=== PATIENT | male | born 1970 | race Caucasian/White ===

== ENCOUNTER → 2016-11-29 | Outpatient (REF) | payer OTHER ==
[2016-11-29 16:14] LABS: ALBUMIN 4.2 GM/DL (3.2-5.2); ALKALINE PHOSPHATASE 97 U/L (45-117); ALT/SGPT 29 U/L (12-78); ANION GAP 10 MEQ/L (8-16); AST/SGOT 18 U/L (15-37); BILIRUBIN,TOTAL 0.2 MG/DL (0.2-1.0); BLOOD UREA NITROGEN 18 MG/DL (7-18); CALCIUM LEVEL 8.8 MG/DL (8.5-10.1); CARBON DIOXIDE LEVEL 25 MEQ/L (21-32); CHLORIDE LEVEL 106 MEQ/L (98-107); CHOLESTEROL LEVEL 263 MG/DL (<200); GLOMERULAR FILTRATION RATE > 60.0 (>60); GLUCOSE, FASTING 101 MG/DL (70-105); POTASSIUM SERUM 4.2 MEQ/L (3.5-5.1); SODIUM LEVEL 141 MEQ/L (136-145); TOTAL PROTEIN 7.7 GM/DL (6.4-8.2); TRIGLYCERIDES LEVEL 256 MG/DL (<150)
== END ==
LOC: M SFHCPLAZ 10:53
PROVIDERS: ATTEND Internal Medicine Infectious Disease
DX: Z11.3 Encounter for screening for infections with a predominantly sexual mode of transmission (principal); B20 Human immunodeficiency virus [HIV] disease; E78.00 Pure hypercholesterolemia, unspecified

== ENCOUNTER → 2017-09-19 | Outpatient (REF) | payer OTHER ==
[2017-09-19 16:35] LABS: ANION GAP 7 MEQ/L (8-16); AST/SGOT 11 U/L (7-37); BLOOD UREA NITROGEN 20 MG/DL (7-18); CALCIUM LEVEL 9.1 MG/DL (8.5-10.1); CARBON DIOXIDE LEVEL 29 MEQ/L (21-32); CHLORIDE LEVEL 105 MEQ/L (98-107); CREATININE FOR GFR 0.83 MG/DL (0.70-1.30); GLOMERULAR FILTRATION RATE > 60.0 (>60); GLUCOSE, FASTING 86 MG/DL (70-105); POTASSIUM SERUM 4.4 MEQ/L (3.5-5.1); SODIUM LEVEL 141 MEQ/L (136-145)
[2017-09-19 16:36] LABS: ALBUMIN 4.1 GM/DL (3.2-5.2); ALBUMIN/GLOBULIN RATIO 1.37 (1.00-1.93); ALKALINE PHOSPHATASE 79 U/L (45-117); ALT/SGPT 23 U/L (12-78); BILIRUBIN,TOTAL 0.2 MG/DL (0.2-1.0); CHOLESTEROL LEVEL 282 MG/DL (<200); TOTAL PROTEIN 7.1 GM/DL (6.4-8.2); TRIGLYCERIDES LEVEL 219 MG/DL (<150)
[2017-09-25 00:06] LABS: Eosinophils 1 % (Not Estab.); HCT 45.3 % (37.5-51.0); HGB 14.9 g/dL (12.6-17.7); Monocytes 11 % (Not Estab.); Neutrophils 51 % (Not Estab.); WBC 5.2 x10E3/uL (3.4-10.8)
== END ==
LOC: M SFHCPLAZ 10:50
PROVIDERS: ATTEND Internal Medicine Infectious Disease
DX: B20 Human immunodeficiency virus [HIV] disease (principal); E78.00 Pure hypercholesterolemia, unspecified

== ENCOUNTER → 2018-03-25 | Outpatient (REF) | payer OTHER | LOC: M SFHCPLAZ 10:47 | DX: B20 Human immunodeficiency virus [HIV] disease (principal); E78.00 Pure hypercholesterolemia, unspecified; Z11.3 Encounter for screening for infections with a predominantly sexual mode of transmission ==

== ENCOUNTER → 2018-09-15 | Outpatient (REF) | payer OTHER ==
[2018-09-15 14:00] LABS: ALBUMIN 3.7 GM/DL (3.2-5.2); ALBUMIN/GLOBULIN RATIO 0.97 (1.00-1.93); ALKALINE PHOSPHATASE 84 U/L (45-117); ALT/SGPT 20 U/L (12-78); ANION GAP 6 MEQ/L (8-16); AST/SGOT 12 U/L (7-37); BILIRUBIN,TOTAL 0.3 MG/DL (0.2-1.0); BLOOD UREA NITROGEN 17 MG/DL (7-18); CALCIUM LEVEL 8.7 MG/DL (8.5-10.1); CARBON DIOXIDE LEVEL 27 MEQ/L (21-32); CHLORIDE LEVEL 108 MEQ/L (98-107); CHOLESTEROL LEVEL 238 MG/DL (<200); CHOLESTEROL RISK RATIO 5.534 (<5); CREATININE FOR GFR 0.98 MG/DL (0.70-1.30); GLOMERULAR FILTRATION RATE > 60.0 (>60); GLUCOSE, FASTING 88 MG/DL (70-100); HDL CHOLESTEROL 43 MG/DL (>40); LDL CHOLESTEROL 170 MG/DL (<100); NON-HDL-C 195 MG/DL; POTASSIUM SERUM 4.8 MEQ/L (3.5-5.1); SODIUM LEVEL 141 MEQ/L (136-145); TOTAL PROTEIN 7.5 GM/DL (6.4-8.2); TRIGLYCERIDES LEVEL 123 MG/DL (<150)
[2018-09-15 14:17] LABS: APPEARANCE, URINE CLEAR (CLEAR); BACTERIA, URINE AUTO NEGATIVE (NEGATIVE); BILIRUBIN, URINE AUTO NEGATIVE (NEGATIVE); BLOOD, URINE BLOOD NEGATIVE (NEGATIVE); COLOR, URINE YELLOW (YELLOW); GLUCOSE, URINE (UA) AUTO NEGATIVE (NEGATIVE); KETONE, URINE AUTO NEGATIVE (NEGATIVE); LEUKOCYTE ESTERASE, URINE AUTO NEGATIVE (NEGATIVE); NITRITE, URINE AUTO NEGATIVE (NEGATIVE); PROTEIN, URINE AUTO NEGATIVE (NEGATIVE); RBC, URINE AUTO 1 /HPF (0-3); SPECIFIC GRAVITY URINE AUTO 1.019 (1.002-1.035); SQUAMOUS EPITHELIAL CELL UR AU 0 /HPF (0-6); UROBILINOGEN, URINE AUTO 0.2 mg/dL (0.0-2.0); WBC, URINE AUTO 0 /HPF (0-3)
[2018-09-15 15:25] LABS: CHLAMYDIA DNA AMPLIFICATION NEGATIVE (NEGATIVE); GC DNA AMPLIFICATION NEGATIVE (NEGATIVE)
[2018-09-18 00:07] LABS: % CD8 Pos Lymph 29.2 % (12.0-35.5); %CD4 Pos Lymphs 47.6 % (30.8-58.5); ABS Lymphs 2.2 x10E3/uL (0.7-3.1); ABS Monocytes 0.6 x10E3/uL (0.1-0.9); Abs CD4 Helper 1047 /uL (359-1519); Abs CD8 Suppres 642 /uL (109-897); CD4/CD8 Ratio 1.63 (0.92-3.72); Eosinophils 1 % (Not Estab.); HCT 44.8 % (37.5-51.0); HGB 15.4 g/dL (13.0-17.7); HIV-1 RNA PCR QUANT 2 LC550285 20 copies/mL (.); HIV-1 RNA PCR QUANT 3 LC550285 1.301 (.); Immature Grans 0 % (Not Estab.); Lymphocytes 37 % (Not Estab.); MCH 31.6 pg (26.6-33.0); MCHC 34.4 g/dL (31.5-35.7); MCV 92 fL (79-97); Monocytes 10 % (Not Estab.); Neutrophils 51 % (Not Estab.); Platelets 282 x10E3/uL (150-379); RBC 4.88 x10E6/uL (4.14-5.80); RDW 14.2 % (12.3-15.4); WBC 5.9 x10E3/uL (3.4-10.8)
== END ==
LOC: M SFHCPLAZ 10:10
DX: B20 Human immunodeficiency virus [HIV] disease (principal); E78.00 Pure hypercholesterolemia, unspecified; Z11.3 Encounter for screening for infections with a predominantly sexual mode of transmission; I10 Essential (primary) hypertension

== ENCOUNTER → 2019-03-23 | Outpatient (REF) | payer OTHER ==
[2019-03-23 16:31] LABS: ALBUMIN 3.8 GM/DL (3.2-5.2); ALT/SGPT 19 U/L (12-78); BILIRUBIN,TOTAL 0.2 MG/DL (0.2-1.0); BLOOD UREA NITROGEN 18 MG/DL (7-18); CALCIUM LEVEL 8.8 MG/DL (8.5-10.1); CARBON DIOXIDE LEVEL 23 MEQ/L (21-32); CHLORIDE LEVEL 108 MEQ/L (98-107); CREATININE FOR GFR 0.91 MG/DL (0.70-1.30); GLOMERULAR FILTRATION RATE > 60.0 (>60); GLUCOSE, FASTING 78 MG/DL (70-100); POTASSIUM SERUM 4.3 MEQ/L (3.5-5.1); SODIUM LEVEL 139 MEQ/L (136-145); TOTAL PROTEIN 7.1 GM/DL (6.4-8.2)
[2019-03-25 10:45] LABS: HEPATITIS C VIRUS ABY INDEX < 0.0 INDEX (<0.8)
[2019-03-26 00:07] LABS: % CD8 Pos Lymph 26.9 % (12.0-35.5); %CD4 Pos Lymphs 49.7 % (30.8-58.5); ABS Eosinophils 0.1 x10E3/uL (0.0-0.4); ABS Lymphs 3.1 x10E3/uL (0.7-3.1); ABS Monocytes 0.6 x10E3/uL (0.1-0.9); ABS Neutophils 2.9 x10E3/uL (1.4-7.0); Abs CD4 Helper 1541 /uL (359-1519); Abs CD8 Suppres 834 /uL (109-897); CD4/CD8 Ratio 1.85 (0.92-3.72); Eosinophils 1 % (Not Estab.); HGB 15.1 g/dL (13.0-17.7); Immature Grans 0 % (Not Estab.); Lymphocytes 46 % (Not Estab.); MCHC 33.6 g/dL (31.5-35.7); MCV 95 fL (79-97); Monocytes 10 % (Not Estab.); Neutrophils 43 % (Not Estab.); Platelets 275 x10E3/uL (150-379); RBC 4.72 x10E6/uL (4.14-5.80); RDW 14.1 % (12.3-15.4); WBC 6.7 x10E3/uL (3.4-10.8)
[2019-03-27 00:07] LABS: HIV-1 RNA PCR QUANT 2 LC550285 30 copies/mL (.); HIV-1 RNA PCR QUANT 3 LC550285 1.477 (.)
== END ==
LOC: M SFHCPLAZ 14:07
PROVIDERS: ATTEND Internal Medicine Infectious Disease
DX: B20 Human immunodeficiency virus [HIV] disease (principal)

== ENCOUNTER → 2019-09-21 | Outpatient (REF) | payer OTHER ==
[2019-09-21 16:09] LABS: ALBUMIN 3.9 GM/DL (3.2-5.2); ALT/SGPT 27 U/L (12-78); BILIRUBIN,TOTAL 0.2 MG/DL (0.2-1.0); BLOOD UREA NITROGEN 19 MG/DL (7-18); CALCIUM LEVEL 9.2 MG/DL (8.5-10.1); CARBON DIOXIDE LEVEL 30 MEQ/L (21-32); CHLORIDE LEVEL 105 MEQ/L (98-107); CHOLESTEROL LEVEL 297 MG/DL (<200); CHOLESTEROL RISK RATIO 6.061 (<5); CREATININE FOR GFR 1.41 MG/DL (0.70-1.30); FERRITIN 143 NG/ML (26-388); GLOMERULAR FILTRATION RATE 56.6 (>56); GLUCOSE, FASTING 68 MG/DL (70-100); HDL CHOLESTEROL 49 MG/DL (>40); IRON (FE) 113 UG/DL (65-175); NON-HDL-C 248 MG/DL; PERCENT SATURATION 33.5 % (19.7-50.0); POTASSIUM SERUM 4.5 MEQ/L (3.5-5.1); SODIUM LEVEL 142 MEQ/L (136-145); TOTAL IRON BINDING CAPACITY 337 UG/DL (250-450); TOTAL PROTEIN 7.6 GM/DL (6.4-8.2); TRIGLYCERIDES LEVEL 508 MG/DL (<150)
== END ==
LOC: M SFHCPLAZ 14:24
PROVIDERS: ATTEND Internal Medicine Infectious Disease
DX: E78.00 Pure hypercholesterolemia, unspecified (principal); B20 Human immunodeficiency virus [HIV] disease; Z83.49 Family history of other endocrine, nutritional and metabolic diseases

== ENCOUNTER 2020-07-01 08:00 | Day surgery (SDC) | payer OTHER ==
[2020-07-01] MEDS ORDERED: propofoL 200 MG/20 ML VIAL ONE ×2 (09:35)
--- NOTE | 2020-07-27 11:28 | ROOR ---
Patient Name: Leonel Christianson Procedure Date: 07/01/2020 7:27 AM Date of : 1970 Age: 50 Room: [facility] Gender: Male Note Status: Medical Pathologist Override Procedure: Colonoscopy Indications: Screening for colorectal malignant neoplasm Providers: Ozzie Fitzgerald MD Referring MD: Tamika ASTORGA MD., Alaina Liu MD Requesting Provider: Medicines: Monitored Anesthesia Care Complications: No immediate complications. Procedure: Pre-Anesthesia Assessment: - Prior to the procedure, a History and Physical was performed, and patient medications and allergies were reviewed. The patient is competent. The risks and benefits of the procedure and the sedation options and risks were discussed with the patient. All questions were answered and informed consent was obtained. Patient identification and proposed procedure were verified by the physician, the nurse and the anesthesiologist in the procedure room. Mental Status Examination: alert and oriented. Airway Examination: normal oropharyngeal airway and neck mobility. Respiratory Examination: clear to auscultation. CV Examination: normal. Prophylactic Antibiotics: The patient does not require prophylactic antibiotics. Prior Anticoagulants: The patient has taken no previous anticoagulant or antiplatelet agents. ASA Grade Assessment: II - A patient with mild systemic disease. After reviewing the risks and benefits, the patient was deemed in satisfactory condition to undergo the procedure. The anesthesia plan was to use monitored anesthesia care (MAC). Immediately prior to administration of medications, the patient was re-assessed for adequacy to receive sedatives. The heart rate, respiratory rate, oxygen saturations, blood pressure, adequacy of pulmonary ventilation, and response to care were monitored throughout the procedure. The physical status of the patient was re-assessed after the procedure. The colonoscopy was performed without difficulty. The patient tolerated the procedure well. The quality of the bowel preparation was good. The terminal ileum, ileocecal valve, appendiceal orifice, and rectum were photographed. Scope insertion time was 3 minutes. Scope withdrawal time was 9 minutes. The total duration of the procedure was 14 minutes. The Colonoscope was introduced through the anus and advanced to the terminal ileum, with identification of the appendiceal orifice and IC valve. Findings: The perianal and digital rectal examinations were normal. The terminal ileum appeared normal. A 4 mm polyp was found in the sigmoid colon. The polyp was sessile. The polyp was removed with a jumbo cold forceps. Resection and retrieval were complete. Verification of patient identification for the specimen was done by the physician and nurse using the patient's name, date and medical record number. Estimated blood loss was minimal. Multiple small and large-mouthed diverticula were found in the sigmoid colon. There was no evidence of diverticular bleeding. Non-bleeding external and internal hemorrhoids were found during retroflexion. The hemorrhoids were small. Impression: - The examined portion of the ileum was normal. - One 4 mm polyp in the sigmoid colon, removed with a jumbo cold forceps. Resected and retrieved. - Moderate diverticulosis in the sigmoid colon. There was no evidence of diverticular bleeding. - Non-bleeding external and internal hemorrhoids. Recommendation: - Patient has a contact number available for emergencies. The signs and symptoms of potential delayed complications were discussed with the patient. Return to normal activities tomorrow. Written discharge instructions were provided to the patient. - High fiber diet. - Continue present medications. - Await pathology results. - Use fiber, for example Citrucel, Fibercon, Konsyl or Metamucil. - Repeat colonoscopy in 5-10 years for surveillance based on pathology results. - Telephone GI clinic for pathology results in 2 weeks. - Return to primary care physician. Ozzie Fitzgerald MD Ozzie Fitzgerald MD 07/01/2020 10:14:24 AM Number of Addenda: 0 Note Initiated On: 07/01/2020 7:27 AM Estimated Blood Loss: Estimated blood loss was minimal.
== END 2020-07-01 10:45 | disposition home or self-care (01) ==
LOC: M SDC 08:00
PROVIDERS: ATTEND Internal Medicine Gastroenterology
DX: Z12.11 Encounter for screening for malignant neoplasm of colon (principal); K64.8 Other hemorrhoids; K63.5 Polyp of colon; K57.30 Diverticulosis of large intestine without perforation or abscess without bleeding

== ENCOUNTER → 2020-11-29 | Outpatient (CLI) | payer OTHER | LOC: M LABSMTC 13:27 | PROVIDERS: ATTEND Family Medicine | DX: Z20.828 Contact with and (suspected) exposure to other viral communicable diseases (principal) ==

== ENCOUNTER → 2021-04-13 | Outpatient (REF) | payer OTHER ==
[2021-04-13 15:33] LABS: HEMOGLOBIN A1c 5.3 %
[2021-04-13 15:37] LABS: ALT/SGPT 59 U/L (12-78); BILIRUBIN,TOTAL 0.2 MG/DL (0.2-1.0); BLOOD UREA NITROGEN 22 MG/DL (7-18); CALCIUM LEVEL 8.6 MG/DL (8.5-10.1); CARBON DIOXIDE LEVEL 26 MEQ/L (21-32); CHLORIDE LEVEL 108 MEQ/L (98-107); CHOLESTEROL LEVEL 170 MG/DL (<200); CREATININE FOR GFR 0.86 MG/DL (0.70-1.30); GLOMERULAR FILTRATION RATE > 60.0 (>56); GLUCOSE, FASTING 94 MG/DL (70-100); HDL CHOLESTEROL 35 MG/DL (>40); POTASSIUM SERUM 4.2 MEQ/L (3.5-5.1); SODIUM LEVEL 140 MEQ/L (136-145); TRIGLYCERIDES LEVEL 101 MG/DL (<150)
[2021-04-13 15:38] LABS: ALBUMIN 3.2 GM/DL (3.2-5.2); CHOLESTEROL RISK RATIO 4.857 (<5); LDL CHOLESTEROL 115 MG/DL (<100); NON-HDL-C 135 MG/DL; TOTAL PROTEIN 7.1 GM/DL (6.4-8.2)
[2021-04-13 16:24] LABS: HEPATITIS C VIRUS ABY INDEX 0.1 INDEX (<0.8)
[2021-04-16 15:07] LABS: % CD8 Pos Lymph 24.6 % (12.0-35.5); %CD4 Pos Lymphs 51.2 % (30.8-58.5); ABS Lymphs 1.6 x10E3/uL (0.7-3.1); ABS Monocytes 0.6 x10E3/uL (0.1-0.9); ABS Neutophils 2.7 x10E3/uL (1.4-7.0); Abs CD4 Helper 819 /uL (359-1519); Abs CD8 Suppres 394 /uL (109-897); CD4/CD8 Ratio 2.08 (0.92-3.72); CHLAMYDIA PHARYNGEAL APTIMA Negative (Negative); CHLAMYDIA RECTAL APTIMA Negative (Negative); Eosinophils 1 % (Not Estab.); GC PHARYNGEAL APTIMA Negative (Negative); GC RECTAL APTIMA Negative (Negative); HCT 42.3 % (37.5-51.0); HGB 13.9 g/dL (13.0-17.7); HIV-1 RNA PCR QUANT 2 LC550285 120 copies/mL (.); HIV-1 RNA PCR QUANT 3 LC550285 2.079 (.); Immature Grans 0 % (Not Estab.); Lymphocytes 32 % (Not Estab.); MCH 30.1 pg (26.6-33.0); MCHC 32.9 g/dL (31.5-35.7); MCV 92 fL (79-97); Monocytes 12 % (Not Estab.); Neutrophils 55 % (Not Estab.); Platelets 396 x10E3/uL (150-450); RBC 4.62 x10E6/uL (4.14-5.80); RDW 12.2 % (11.6-15.4)
== END ==
LOC: M SFHCPLAZ 12:29
PROVIDERS: ATTEND Internal Medicine Infectious Disease
DX: B20 Human immunodeficiency virus [HIV] disease (principal); E78.2 Mixed hyperlipidemia; Z13.1 Encounter for screening for diabetes mellitus

== ENCOUNTER → 2021-10-19 | Outpatient (REF) | payer OTHER ==
[2021-10-19 20:53] LABS: GC DNA AMPLIFICATION NEGATIVE (NEGATIVE)
== END ==
LOC: M PLALAB 10:00 → EDSTATUS 13:55
PROVIDERS: ATTEND Internal Medicine Infectious Disease
DX: B20 Human immunodeficiency virus [HIV] disease (principal)

== ENCOUNTER → 2021-10-31 | Outpatient (REF) | payer OTHER | LOC: M SFHCPLAZ 17:04 | PROVIDERS: ATTEND Internal Medicine Infectious Disease | DX: Z11.3 Encounter for screening for infections with a predominantly sexual mode of transmission (principal) ==

== ENCOUNTER → 2022-01-30 | Outpatient (CLI) | payer OTHER ==
[2022-01-30 15:22] LABS: ALBUMIN 3.6 GM/DL (3.2-5.2); ALT/SGPT 33 U/L (12-78); BILIRUBIN,TOTAL 0.2 MG/DL (0.2-1.0); BLOOD UREA NITROGEN 15 MG/DL (7-18); CALCIUM LEVEL 8.9 MG/DL (8.5-10.1); CARBON DIOXIDE LEVEL 30 MEQ/L (21-32); CHLORIDE LEVEL 108 MEQ/L (98-107); CHOLESTEROL LEVEL 169 MG/DL (<200); CHOLESTEROL RISK RATIO 3.313 (<5); CREATININE FOR GFR 1.01 MG/DL (0.70-1.30); GLOMERULAR FILTRATION RATE > 60.0 (>56); GLUCOSE, FASTING 103 MG/DL (70-100); HDL CHOLESTEROL 51 MG/DL (>40); LDL CHOLESTEROL 104 MG/DL (<100); NON-HDL-C 118 MG/DL; POTASSIUM SERUM 4.5 MEQ/L (3.5-5.1); SODIUM LEVEL 141 MEQ/L (136-145); TOTAL PROTEIN 7.9 GM/DL (6.4-8.2); TRIGLYCERIDES LEVEL 69 MG/DL (<150)
[2022-02-01 10:10] LABS: CHLAMYDIA PHARYNGEAL APTIMA Negative (Negative); CHLAMYDIA RECTAL APTIMA Positive (Negative); GC PHARYNGEAL APTIMA Negative (Negative); GC RECTAL APTIMA Negative (Negative)
[2022-02-02 14:08] LABS: %CD4 Pos Lymphs 45.8 % (30.8-58.5); ABS Basophils 0.1 x10E3/uL (0.0-0.2); ABS Lymphs 2.1 x10E3/uL (0.7-3.1); ABS Monocytes 0.6 x10E3/uL (0.1-0.9); ABS Neutophils 4.8 x10E3/uL (1.4-7.0); Abs CD4 Helper 962 /uL (359-1519); Abs CD8 Suppres 588 /uL (109-897); CD4/CD8 Ratio 1.64 (0.92-3.72); Eosinophils 0 % (Not Estab.); HCT 44.8 % (37.5-51.0); HGB 14.8 g/dL (13.0-17.7); HIV-1 RNA PCR QUANT 2 LC550285 <20 copies/mL (.); Immature Grans 0 % (Not Estab.); Lymphocytes 28 % (Not Estab.); MCH 30.1 pg (26.6-33.0); MCV 91 fL (79-97); Monocytes 7 % (Not Estab.); Neutrophils 64 % (Not Estab.); Platelets 442 x10E3/uL (150-450); RBC 4.92 x10E6/uL (4.14-5.80); RDW 12.3 % (11.6-15.4); RPR Reactive (Non Reactive); WBC 7.6 x10E3/uL (3.4-10.8)
== END ==
LOC: M WUC 11:57
PROVIDERS: ATTEND Internal Medicine Infectious Disease
DX: B20 Human immunodeficiency virus [HIV] disease (principal); J02.9 Acute pharyngitis, unspecified; E78.00 Pure hypercholesterolemia, unspecified

== ENCOUNTER → 2022-01-30 | Outpatient (REF) | payer OTHER | LOC: M SFHCPLAZ 12:54 | PROVIDERS: ATTEND Internal Medicine Infectious Disease | DX: Z53.9 Procedure and treatment not carried out, unspecified reason (principal) ==

== ENCOUNTER → 2022-01-30 | Outpatient (REF) | payer OTHER ==
[2022-01-30 14:59] LABS: GC DNA AMPLIFICATION NEGATIVE (NEGATIVE)
== END ==
LOC: M SFHCPLAZ 12:59
PROVIDERS: ATTEND Internal Medicine Infectious Disease
DX: J02.9 Acute pharyngitis, unspecified (principal)

== ENCOUNTER → 2022-09-18 | Outpatient (REF) | payer OTHER ==
[2022-09-18 21:05] LABS: GC DNA AMPLIFICATION NEGATIVE (NEGATIVE)
[2022-09-18 21:06] LABS: GC DNA AMPLIFICATION NEGATIVE (NEGATIVE)
[2022-09-18 21:07] LABS: GC DNA AMPLIFICATION POSITIVE (NEGATIVE)
== END ==
LOC: M SFHCPLAZ 17:22
PROVIDERS: ATTEND Internal Medicine Infectious Disease
DX: Z11.3 Encounter for screening for infections with a predominantly sexual mode of transmission (principal)

== ENCOUNTER 2023-08-18 15:59 | Emergency (ER) | payer OTHER, SELFPAY ==
[~2023-08-18] VITALS: Ht 180.3 cm; Wt 84.1 kg
[2023-08-18] MEDS ORDERED: NS 1,000 ML IV ONE (16:30)
[2023-08-18] MEDS ORDERED: ONDANSETRON 4MG ORAL DISINTEGRATING TAB PO ONE (16:30)
[2023-08-18] MEDS ORDERED: MORPHINE 4 MG/ML 1ML VIAL IV PRN (16:35)
[2023-08-18 17:30] LABS: BASO # 0.1 10^3/uL (0.0-0.2); BASO % 1.1 % (0.0-1.0); EOS # 0.1 10^3/uL (0.0-0.5); EOS % 1.6 % (0.0-3.0); HEMATOCRIT 42.2 % (42.0-52.0); HEMOGLOBIN 14.1 g/dl (13.5-17.5); LYMPH # 3.3 10^3/uL (1.5-5.0); LYMPH % 39.6 % (24.0-44.0); MEAN CORPUSCULAR HGB CONC 33.4 g/dl (32.0-36.5); MEAN CORPUSCULAR VOLUME 92.7 fl (80.0-96.0); MONO # 0.7 10^3/uL (0.0-0.8); MONO % 8.6 % (2.0-8.0); NEUTROPHILS % 48.9 % (36.0-66.0); PLATELET COUNT, AUTOMATED 357 10^3/uL (150-450); RED BLOOD COUNT 4.55 10^6/uL (4.30-6.10); WHITE BLOOD COUNT 8.2 10^3/uL (4.0-10.0)
[2023-08-18 17:31] LABS: FREE T4 1.12 NG/DL (0.89-1.76); THYROID STIMULATING HORMONE 0.762 uIU/ML (0.55-4.78)
[2023-08-18 17:34] LABS: ALBUMIN 3.4 G/DL (3.2-5.2); ALKALINE PHOSPHATASE 111 U/L (46-116); ALT/SGPT 23 U/L (7.0-40); AST/SGOT 29 U/L (<34); BILIRUBIN,DIRECT < 0.1 MG/DL (<0.4); BILIRUBIN,TOTAL 0.2 MG/DL (0.3-1.2); BLOOD UREA NITROGEN 17 MG/DL (9-23); CALCIUM LEVEL 8.4 MG/DL (8.5-10.1); CARBON DIOXIDE LEVEL 24 MMOL/L (20-31); CHLORIDE LEVEL 109 MMOL/L (98-107); CK-MB VALUE MASS < 1.0 NG/ML (<3.6); CPK CREATINE PHOSPHOKINASE 63 U/L (46-171); CREATININE FOR GFR 0.86 MG/DL (0.70-1.30); GLOMERULAR FILTRATION RATE > 60.0 (>56); GLUCOSE, FASTING 121 MG/DL (60-100); LIPASE 36 U/L (12-53); MAGNESIUM LEVEL 2.1 MG/DL (1.8-2.4); MB/CK RELATIVE INDEX 1.58 (< OR =4); POTASSIUM SERUM 4.9 MMOL/L (3.5-5.1); SODIUM LEVEL 140 MMOL/L (136-145)
[2023-08-18] MEDS ORDERED: KETOROLAC 30 MG/ML 1ML VIAL IV ONE (19:30)
[2023-08-18 19:51] LABS: GC DNA AMPLIFICATION NEGATIVE (NEGATIVE)
[2023-08-18] MEDS ORDERED: KETO10TAB PO (20:12)
[2023-08-18 20:30] VITALS: BP 148/90; TEMP 98.5; O2SAT 98
[2023-08-18] MEDS ORDERED: BIKT1TAB PO (20:32)
== END 2023-08-18 20:42 | disposition home or self-care (01) ==
LOC: M ED 15:59 → EDBD 15:59 → M ED 20:42
DX: R55 Syncope and collapse (principal); Q53.9 Undescended testicle, unspecified; I45.10 Unspecified right bundle-branch block; I10 Essential (primary) hypertension; F43.10 Post-traumatic stress disorder, unspecified; Z21 Asymptomatic human immunodeficiency virus [HIV] infection status; Z79.899 Other long term (current) drug therapy
CPT/HCPCS: 76857; 76870; 80048; 80076; 81001; 82550; 82553; 83605; 83690; 83735; 84439; 84443; 85025; 87040; 87810; 87850; 93005; 93041; 93976; 96361; 96374; 96375; 99285; J1885

== ENCOUNTER → 2023-11-15 | Outpatient (CLI) | payer OTHER ==
[~2023-11-15] MED LIST: BIKT1TAB PO; KETO10TAB PO
[2023-11-15 16:34] LABS: ALBUMIN 3.5 G/DL (3.2-5.2); ALKALINE PHOSPHATASE 132 U/L (46-116); ALT/SGPT 18 U/L (7.0-40); AST/SGOT 11 U/L (<34); BILIRUBIN,TOTAL 0.3 MG/DL (0.3-1.2); BLOOD UREA NITROGEN 18 MG/DL (9-23); CALCIUM LEVEL 8.8 MG/DL (8.5-10.1); CARBON DIOXIDE LEVEL 28 MMOL/L (20-31); CHLORIDE LEVEL 105 MMOL/L (98-107); CREATININE FOR GFR 0.83 MG/DL (0.70-1.30); GLOMERULAR FILTRATION RATE > 60.0 (>56); GLUCOSE, FASTING 105 MG/DL (60-100); POTASSIUM SERUM 4.5 MMOL/L (3.5-5.1); SODIUM LEVEL 140 MMOL/L (136-145); TOTAL PROTEIN 7.3 G/DL (5.7-8.2)
[2023-11-15 16:37] LABS: HEPATITIS B SURFACE ANTIBODY POSITIVE (POSITIVE)
[2023-11-15 17:11] LABS: HEPATITIS C VIRUS ABY INDEX 0.08 INDEX (<0.8)
== END ==
LOC: M PLALAB 14:22
PROVIDERS: ATTEND Internal Medicine Infectious Disease
DX: B20 Human immunodeficiency virus [HIV] disease (principal); A52.8 Late syphilis, latent

== ENCOUNTER 2024-03-01 13:51 | Inpatient (IN) | payer OTHER ==
[~2024-03-01] VITALS: Ht 182.9 cm; Wt 84.0 kg
[2024-03-01 14:51] LABS: BASO # 0.1 10^3/uL (0.0-0.2); BASO % 0.6 % (0.0-1.0); EOS # 0.1 10^3/uL (0.0-0.5); EOS % 0.6 % (0.0-3.0); HEMATOCRIT 51.4 % (42.0-52.0); HEMOGLOBIN 16.8 g/dl (13.5-17.5); LYMPH # 3.5 10^3/uL (1.5-5.0); LYMPH % 31.8 % (24.0-44.0); MEAN CORPUSCULAR HEMOGLOBIN 31.1 pg (27.0-33.0); MEAN CORPUSCULAR HGB CONC 32.7 g/dl (32.0-36.5); MONO # 1.2 10^3/uL (0.0-0.8); NEUTROPHILS # 6.1 10^3/uL (1.5-8.5); NEUTROPHILS % 55.5 % (36.0-66.0); PLATELET COUNT, AUTOMATED 349 10^3/uL (150-450); RED BLOOD COUNT 5.41 10^6/uL (4.30-6.10); WHITE BLOOD COUNT 10.9 10^3/uL (4.0-10.0)
[2024-03-01] MEDS: NS 1,000 ML IV SCH (15:20)
[2024-03-01 16:42] LABS: CK-MB VALUE MASS < 1.0 NG/ML (<3.6); THYROID STIMULATING HORMONE 1.266 uIU/ML (0.55-4.78)
[2024-03-01 16:56] LABS: AMPHETAMINES LEVEL URINE NEGATIVE (NEGATIVE); BARBITURATES URINE NEGATIVE (NEGATIVE); BENZODIAZEPINES URINE NEGATIVE (NEGATIVE); CANNABINOIDS URINE NEGATIVE (NEGATIVE); METHADONE URINE NEGATIVE (NEGATIVE); OPIATES URINE NEGATIVE (NEGATIVE); PHENCYCLIDINE URINE NEGATIVE (NEGATIVE)
[2024-03-01 17:03] LABS: COCAINE METABOLITE URINE POSITIVE (NEGATIVE)
[2024-03-01 17:38] LABS: ETHYL ALCOHOL (ETHANOL) < 0.003 % (0.000-0.010)
[2024-03-01 17:40] LABS: ALKALINE PHOSPHATASE 129 U/L (46-116); ALT/SGPT 14 U/L (7.0-40); AST/SGOT 21 U/L (<34); BILIRUBIN,DIRECT < 0.1 MG/DL (<0.4); BILIRUBIN,TOTAL 0.4 MG/DL (0.3-1.2); BLOOD UREA NITROGEN 15 MG/DL (9-23); CALCIUM LEVEL 8.3 MG/DL (8.5-10.1); CARBON DIOXIDE LEVEL 24 MMOL/L (20-31); CHLORIDE LEVEL 106 MMOL/L (98-107); CREATININE FOR GFR 0.68 MG/DL (0.70-1.30); GLOMERULAR FILTRATION RATE > 60.0 (>56); GLUCOSE, FASTING 94 MG/DL (60-100); POTASSIUM SERUM 4.5 MMOL/L (3.5-5.1); SODIUM LEVEL 139 MMOL/L (136-145); TOTAL PROTEIN 7.2 G/DL (5.7-8.2)
[2024-03-01 17:42] LABS: CPK CREATINE PHOSPHOKINASE 145 U/L (46-171)
[2024-03-01] MEDS ORDERED: DOLU1TAB PO (18:46)
[2024-03-01] MEDS ORDERED: HOME MED LIST COMPLETE! XX SCH (18:50)
[2024-03-01] MEDS ORDERED: ACETAMINOPHEN TAB 650MG DOSE (2X325MG) PO PRN (19:05)
[2024-03-01] MEDS: VANCOMYCIN HCL 1,000 MG, VIAL MATE ADAPTER 1 EACH in D5W 250 ML IV ONE (19:56)
[2024-03-01 20:11] LABS: PROCALCITONIN 0.09 ng/ml
[2024-03-01 20:32] LABS: HEMOGLOBIN A1c 5.5 % (4.0-6.0)
[2024-03-01 20:36] LABS: FREE T4 0.92 NG/DL (0.89-1.76); THYROID STIMULATING HORMONE 1.374 uIU/ML (0.55-4.78)
[2024-03-01 20:37] LABS: TOTAL 25(OH) VITAMIN D 15.2 NG/ML (20.0-100.0); VITAMIN B12 LEVEL 364 PG/ML (211-911)
[2024-03-01 20:48] LABS: INR 1.02; PARTIAL THROMBOPLASTIN TIME 29.2 SECONDS (24.8-34.2); PROTHROMBIN TIME 13.1 SECONDS (12.5-14.5)
[2024-03-01] MEDS: GENTAMICIN 0.3% OU SCH (21:22)
[2024-03-01] MEDS: amLODIPine 5 MG TAB PO SCH (21:22)
[2024-03-01] MEDS: DOCUSATE SODIUM 100MG CAPSULE PO SCH (21:22)
[2024-03-01] MEDS: PANTOPRAZOLE 40MG TAB (PROTONIX) PO SCH (21:23)
[2024-03-01] MEDS: VANCOMYCIN HCL 750 MG, VIAL MATE ADAPTER 1 EACH in D5W 250 ML IV ONE (21:24)
[2024-03-01] MEDS: PIPERACILLIN/TAZOBACTAM SOD 3.375 GM in D5W MINI-BAG PLUS 50 ML IV SCH (23:06)
[2024-03-02] MEDS: VANCOMYCIN HCL 750 MG, VIAL MATE ADAPTER 1 EACH in D5W 250 ML IV SCH (04:31)
[2024-03-02 12:55] VITALS: BP 152/89
[2024-03-02 13:50] VITALS: BP 155/93; TEMP 98.8; O2SAT 99
[2024-03-02] MEDS ORDERED: VANCOMYCIN HCL 750 MG, VIAL MATE ADAPTER 1 EACH in D5W 250 ML IV SCH (15:00)
== END 2024-03-02 15:37 | disposition left against medical advice (07) | DRG 816 ==
LOC: M ED 13:51 → EDBD 13:51 → M ED INP 19:03 → ENRESERV 03-02 12:46 → M MSPAV 03-02 13:41
PROVIDERS: ADMIT Hospitalist; ATTEND Hospitalist
DX: T40.5X1A Poisoning by cocaine, accidental (unintentional), initial encounter (principal); I10 Essential (primary) hypertension; H10.9 Unspecified conjunctivitis; L02.413 Cutaneous abscess of right upper limb; B20 Human immunodeficiency virus [HIV] disease; L02.414 Cutaneous abscess of left upper limb; Z79.899 Other long term (current) drug therapy; E78.5 Hyperlipidemia, unspecified; Z87.891 Personal history of nicotine dependence; R41.82 Altered mental status, unspecified

== ENCOUNTER → 2024-03-12 | Outpatient (REF) | payer OTHER ==
[~2024-03-12] MED LIST changes: +DOLU1TAB PO
[2024-03-12 14:35] LABS: GC DNA AMPLIFICATION NEGATIVE (NEGATIVE)
== END ==
LOC: M SFHCPLAZ 12:22
PROVIDERS: ATTEND Internal Medicine Infectious Disease
DX: B20 Human immunodeficiency virus [HIV] disease (principal)

== ENCOUNTER → 2024-03-19 | Outpatient (CLI) | payer OTHER | LOC: M PLARAD 12:21 | PROVIDERS: ATTEND Internal Medicine Infectious Disease | DX: S06.0X9A Concussion with loss of consciousness of unspecified duration, initial encounter (principal); R26.0 Ataxic gait; R90.82 White matter disease, unspecified; X58.XXXA Exposure to other specified factors, initial encounter; Y92.9 Unspecified place or not applicable; Y93.9 Activity, unspecified; Y99.9 Unspecified external cause status ==

== ENCOUNTER → 2024-07-07 | Outpatient (CLI) | payer OTHER ==
[2024-07-07 15:28] LABS: ALBUMIN 3.6 G/DL (3.2-5.2); ALKALINE PHOSPHATASE 115 U/L (46-116); ALT/SGPT 22 U/L (7.0-40); AST/SGOT 15 U/L (<34); BILIRUBIN,TOTAL 0.3 MG/DL (0.3-1.2); BLOOD UREA NITROGEN 17 MG/DL (9-23); CALCIUM LEVEL 9.6 MG/DL (8.5-10.1); CARBON DIOXIDE LEVEL 25 MMOL/L (20-31); CHLORIDE LEVEL 108 MMOL/L (98-107); CREATININE FOR GFR 0.85 MG/DL (0.70-1.30); GLOMERULAR FILTRATION RATE > 60.0 (>56); GLUCOSE, FASTING 100 MG/DL (60-100); POTASSIUM SERUM 4.4 MMOL/L (3.5-5.1); SODIUM LEVEL 138 MMOL/L (136-145); TOTAL PROTEIN 7.7 G/DL (5.7-8.2)
[2024-07-07 15:30] LABS: TOTAL 25(OH) VITAMIN D 18.7 NG/ML (20.0-100.0)
[2024-07-07 16:07] LABS: HEPATITIS C VIRUS ABY INDEX < 0.02 INDEX (<0.8)
[2024-07-08 16:13] LABS: % CD4+ LYMPHS 44.8 % (30.8-58.5); ABSOLUTE CD4 HELPER 1837 /uL (359-1519); BASOPHILS 1 % (Not Estab.); BASOPHILS ABSOLUTE 0.1 x10E3/uL (0.0-0.2); EOSINOPHILS 1 % (Not Estab.); EOSINOPHILS ABSOLUTE 0.1 x10E3/uL (0.0-0.4); HCT 44.2 % (37.5-51.0); HGB 14.6 g/dL (13.0-17.7); LYMPHOCYTES 43 % (Not Estab.); LYMPHOCYTES ABSOLUTE 4.1 x10E3/uL (0.7-3.1); MCH 29.3 pg (26.6-33.0); MCV 89 fL (79-97); MONOCYTES 9 % (Not Estab.); MONOCYTES ABSOLUTE 0.9 x10E3/uL (0.1-0.9); NEUTROPHILS 46 % (Not Estab.); NEUTROPHILS ABSOLUTE 4.4 x10E3/uL (1.4-7.0); PLT 396 x10E3/uL (150-450); RBC 4.98 x10E6/uL (4.14-5.80); RDW 14.4 % (11.6-15.4); WBC 9.5 x10E3/uL (3.4-10.8)
== END ==
LOC: M PLALAB 12:37
PROVIDERS: ATTEND Internal Medicine Infectious Disease
DX: L02.419 Cutaneous abscess of limb, unspecified (principal); E55.9 Vitamin D deficiency, unspecified; B20 Human immunodeficiency virus [HIV] disease

== ENCOUNTER → 2024-08-22 | Outpatient (CLI) | payer OTHER ==
[~2024-08-22] MED LIST changes: +BUPR-597 PO; +BUSP10TA PO; +ERGO500029 PO
[2024-08-22 13:04] LABS: HEMATOCRIT 47.6 % (42.0-52.0); HEMOGLOBIN 15.9 g/dl (13.5-17.5); MEAN CORPUSCULAR HGB CONC 33.4 g/dl (32.0-36.5); MEAN CORPUSCULAR VOLUME 92.8 fl (80.0-96.0); PLATELET COUNT, AUTOMATED 352 10^3/uL (150-450); RED BLOOD COUNT 5.13 10^6/uL (4.30-6.10); WHITE BLOOD COUNT 7.5 10^3/uL (4.0-10.0)
[2024-08-22 13:35] LABS: BLOOD UREA NITROGEN 18 MG/DL (9-23); CALCIUM LEVEL 9.6 MG/DL (8.5-10.1); CARBON DIOXIDE LEVEL 27 MMOL/L (20-31); CHLORIDE LEVEL 109 MMOL/L (98-107); CREATININE FOR GFR 0.92 MG/DL (0.70-1.30); GLOMERULAR FILTRATION RATE > 60.0 (>56); GLUCOSE, FASTING 87 MG/DL (60-100); POTASSIUM SERUM 4.4 MMOL/L (3.5-5.1); SODIUM LEVEL 140 MMOL/L (136-145)
== END ==
LOC: M RAD 12:23
PROVIDERS: ATTEND Physician Assistant
DX: Z01.818 Encounter for other preprocedural examination (principal)

== ENCOUNTER 2024-09-09 09:05 | Day surgery (SDC) | payer OTHER ==
[~2024-09-09] VITALS: Ht 180.3 cm; Wt 83.0 kg
[2024-09-09] MEDS ORDERED: MORPHINE 2 MG/ML 1ML VIAL IV PRN (09:35)
[2024-09-09] MEDS ORDERED: ONDANSETRON 4MG 2ML VIAL IV PRN ×3 (09:35→15:20)
[2024-09-09] MEDS ORDERED: LR 1,000 ML IV SCH ×3 (09:35→15:20)
[2024-09-09] MEDS: METOCLOPRAMIDE INJ 10MG/2ML VIAL IV STA (09:52)
[2024-09-09] MEDS: MORPHINE 2 MG/ML 1ML VIAL IV PRN (09:53)
[2024-09-09] MEDS: diphenhydrAMINE 50MG/ML VIAL IV ONE (09:55)
[2024-09-09] MEDS: ACETAMINOPHEN *IV* 1,000 MG in IV 1 EA IV ONE (10:00)
[2024-09-09] MEDS ORDERED: propofoL 200 MG/20 ML VIAL As Ordered ONE (11:09)
[2024-09-09] MEDS ORDERED: ONDANSETRON 4MG 2ML VIAL As Ordered ONE (11:09)
[2024-09-09] MEDS ORDERED: ROCURONIUM BROMIDE 50MG/5ML VIAL As Ordered ONE (11:09)
[2024-09-09] MEDS ORDERED: LIDOCAINE 2% 100MG/5ML SDV (FOR ANES.) As Ordered ONE (11:09)
[2024-09-09] MEDS ORDERED: fentaNYL 100 MCG/2 ML INJECTION As Ordered ONE (11:10)
[2024-09-09] MEDS ORDERED: MIDAZOLAM INJ 2MG/2ML VIAL As Ordered ONE (11:10)
[2024-09-09] MEDS: LIDOCAINE 2% MDV 20ML VIAL As Ordered ONE (11:29)
[2024-09-09] MEDS ORDERED: KETOROLAC 60MG 2ML VIAL As Ordered ONE (11:33)
[2024-09-09] MEDS: ceFAZolin 2 GM/D5W 50 ML IV BAG As Ordered ONE (12:02)
[2024-09-09] MEDS: ceFAZolin SOD 2 GM in IV 1 EA IV ONE ×2 (12:05→12:08)
[2024-09-09] MEDS ORDERED: METOPROLOL 5 MG/5 ML VIAL As Ordered ONE (12:10)
[2024-09-09] MEDS ORDERED: hydrALAZINE 20MG/ML 1ML VIAL As Ordered ONE (12:36)
[2024-09-09] MEDS ORDERED: LABETALOL 100MG/20ML VIAL As Ordered ONE (12:54)
[2024-09-09] MEDS ORDERED: SUGAMMADEX SODIUM 500 MG/5 ML VIAL (BRIDION) As Ordered ONE (13:05)
[2024-09-09] MEDS ORDERED: HYDR-3713 PO (13:43)
[2024-09-09] MEDS ORDERED: CEPH500C PO (13:43)
[2024-09-09] MEDS: fentaNYL 100 MCG/2 ML INJECTION IV PRN (13:47)
[2024-09-09 15:10] VITALS: BP 125/64; TEMP 97.6; O2SAT 98
[2024-09-09] MEDS ORDERED: fentaNYL 100 MCG/2 ML INJECTION IV PRN (15:20)
[2024-09-09] MEDS ORDERED: HYDROMORPHONE HCL 0.5 MG/ 0.5 ML SYRINGE IV PRN (15:20)
[2024-09-09] MEDS ORDERED: oxyCODONE 5MG TAB PO PRN (15:20)
[2024-09-09] MEDS ORDERED: diphenhydrAMINE 50MG/ML VIAL IV PRN (15:20)
[2024-09-09] MEDS ORDERED: MEPERIDINE 25 MG/ML 1ML VIAL IV PRN (15:20)
== END 2024-09-09 15:13 | disposition home or self-care (01) ==
LOC: M SDC 09:05
PROVIDERS: ATTEND Urology
DX: Q55.22 Retractile testis (principal); I10 Essential (primary) hypertension; F41.9 Anxiety disorder, unspecified; F32.A Depression, unspecified; F40.00 Agoraphobia, unspecified; B20 Human immunodeficiency virus [HIV] disease; Z79.899 Other long term (current) drug therapy; F17.218 Nicotine dependence, cigarettes, with other nicotine-induced disorders
CPT/HCPCS: 54640; J0131; J0360; J0665; J0690; J1100; J1200; J1885; J1920; J2250; J2405; J2765; J3010

== ENCOUNTER → 2024-10-08 | Outpatient (REF) | payer OTHER ==
[~2024-10-08] MED LIST changes: +CEPH500C PO; +HYDR-3713 PO
== END ==
LOC: M SFHCPLAZ 17:11
PROVIDERS: ATTEND Internal Medicine Infectious Disease
DX: S51.802A Unspecified open wound of left forearm, initial encounter (principal); Y92.9 Unspecified place or not applicable; Y93.9 Activity, unspecified; Y99.9 Unspecified external cause status; X58.XXXA Exposure to other specified factors, initial encounter

== ENCOUNTER → 2025-08-03 | Outpatient (CLI) | payer OTHER ==
[~2025-08-03] MED LIST changes: -BUPR-597 PO; +BUPR-766 PO
[2025-08-03 14:56] LABS: APPEARANCE, URINE HAZY (CLEAR); BACTERIA, URINE AUTO NEGATIVE (NEGATIVE); BILIRUBIN, URINE AUTO NEGATIVE (NEGATIVE); BLOOD, URINE BLOOD NEGATIVE (NEGATIVE); CALCIUM OXALATE CRYSTALS SMALL; GLUCOSE, URINE (UA) AUTO NEGATIVE (NEGATIVE); KETONE, URINE AUTO NEGATIVE (NEGATIVE); LEUKOCYTE ESTERASE, URINE AUTO NEGATIVE (NEGATIVE); MUCUS, URINE SMALL (NEGATIVE); NITRITE, URINE AUTO NEGATIVE (NEGATIVE); PROTEIN, URINE AUTO NEGATIVE (NEGATIVE); RBC, URINE AUTO 0 /HPF (0-3); SPECIFIC GRAVITY URINE AUTO 1.024 (1.002-1.035); SQUAMOUS EPITHELIAL CELL UR AU 0 /HPF (0-6); UROBILINOGEN, URINE AUTO 2.0 mg/dL (0.0-2.0); WBC, URINE AUTO 1 /HPF (0-3)
[2025-08-03 15:00] LABS: ALT/SGPT 23 U/L (7.0-40); AST/SGOT 17 U/L (<34); CALCIUM LEVEL 9.0 MG/DL (8.5-10.1); CARBON DIOXIDE LEVEL 26 MMOL/L (20-31); CHLORIDE LEVEL 107 MMOL/L (98-107); CHOLESTEROL LEVEL 239 MG/DL (<200); CHOLESTEROL RISK RATIO 4.81 (<5); CREATININE FOR GFR 1.00 MG/DL (0.70-1.30); GLOMERULAR FILTRATION RATE 88.3 (>56); LDL CHOLESTEROL 158.2 MG/DL (<100); NON-HDL-C 189.4 MG/DL; POTASSIUM SERUM 4.1 MMOL/L (3.5-5.1); PSA SCREENING 0.45 NG/ML (< 4.00); SODIUM LEVEL 140 MMOL/L (136-145); TRIGLYCERIDES LEVEL 156 MG/DL (<150)
[2025-08-03 15:04] LABS: TOTAL 25(OH) VITAMIN D 37.0 NG/ML (20.0-100.0)
[2025-08-03 16:25] LABS: HEPATITIS C VIRUS ABY INDEX < 0.02 INDEX (<0.8)
[2025-08-03 16:44] LABS: GC DNA AMPLIFICATION NEGATIVE (NEGATIVE)
== END ==
LOC: M PLALAB 09:25
PROVIDERS: ATTEND Internal Medicine Infectious Disease
DX: I10 Essential (primary) hypertension (principal)